=== PATIENT | male | born 1970 | race Caucasian/White ===

== ENCOUNTER 2020-12-02 06:34 | Inpatient (IN) | payer OTHER ==
[~2020-12-02] VITALS: Ht 160 cm; Wt 81.6 kg
[~2020-12-02 06:34] MED LIST: CLARITIN-D (12 H1 EA PO; DITROPAN XL10 MG PO; METOPROLOL SUCC50 MG PO; PROTONIX40 MG PO
[2020-12-02 07:05] LABS: HEMOGLOBIN 17.5 gm/dl (14.0-17.5); RED BLOOD COUNT 5.67 M/UL (4.20-5.50); WHITE BLOOD COUNT 13.4 K/UL (4.5-11.0)
[2020-12-02 07:20] LABS: BUN/CREATININE RATIO 30 (0-10)
[2020-12-02 11:12] LABS: ADENOVIRUS F 40/41 Not Detected (Negative); ASTROVIRUS Not Detected (Negative); CAMPYLOBACTER Not Detected (Negative); CLOSTRIDIUM DIFFICILE TOX A/B Not Detected (Negative); CRYPTOSPORIDIUM Not Detected (Negative); E.COLI 0157 Not Detected (Negative); ENTAMOEBA HISTOLYTICA Not Detected (Negative); ENTEROAGGREGATIVE E.COLI (EAEC Not Detected (Negative); ENTEROPATHOGENIC E.COLI (EPEC) Not Detected (Negative); ENTEROTOXIGENIC E.COLI (ETEC) Not Detected (Negative); GIARDIA LAMBLIA Not Detected (Negative); PLESIOMONAS SHIGELLOIDES Not Detected (Negative); ROTOVIRUS A Not Detected (Negative); SALMONELLA Not Detected (Negative); SAPOVIRUS Not Detected (Negative); SHIG/ENTEROINVAS.ECOLI (EIEC) Not Detected (Negative); SHIGA-LIK TOX.PRO.E.COLI (STEC Not Detected (Negative); VIBRIO Not Detected (Negative); VIBRIO CHOLERAE Not Detected (Negative); YERSINIA ENTEROCOLITICA Not Detected (Negative)
[2020-12-02] MEDS ORDERED: NEXIUM20 MG PO (11:33)
[2020-12-02] MEDS ORDERED: METOPROLOL SUCC50 MG PO (11:37)
[2020-12-02] MEDS ORDERED: MELOXICAM7.5 MG PO (11:37)
[2020-12-02] MEDS ORDERED: LAMISIL TAB 25250 MG PO (11:37)
[2020-12-02] MEDS ORDERED: DAILY VITE1 EACH PO (11:40)
[2020-12-02 16:59] LABS: NOROVIRUS GI/GII DETECTED (Negative)
[2020-12-02] MEDS ORDERED: LEVOTHYROXINE75 MCG PO (20:40)
[2020-12-02] MEDS ORDERED: ASPIRIN EC81 MG PO (20:40)
[2020-12-02] MEDS ORDERED: SINGULAIR10 MG PO (20:43)
[2020-12-02] MEDS ORDERED: ZOCOR20 MG PO (20:44)
[2020-12-03 06:32] LABS: WHITE BLOOD COUNT 13.3 K/UL (4.5-11.0)
[2020-12-03 06:39] LABS: HEMOGLOBIN 15.3 gm/dl (14.0-17.5); RED BLOOD COUNT 4.99 M/UL (4.20-5.50)
[2020-12-03 07:05] LABS: BUN/CREATININE RATIO 23 (0-10)
== END 2020-12-04 19:35 | disposition home or self-care (01) | DRG 872 ==
LOC: ER1 06:34 → CDU 09:43 → MED SURG 4 09:43
PROVIDERS: Family Medicine; Internal Medicine Gastroenterology; Physician Assistant Medical; ADMIT Internal Medicine
PROC: 0DJ08ZZ Inspection of Upper Intestinal Tract, Via Natural or Artificial Opening Endoscopic (ICD-10-PCS; principal; 2020-12-04 10:50)
DX: A41.89 Other specified sepsis (principal); A08.11 Acute gastroenteropathy due to Norwalk agent; K29.60 Other gastritis without bleeding; E03.9 Hypothyroidism, unspecified; E78.5 Hyperlipidemia, unspecified; K44.9 Diaphragmatic hernia without obstruction or gangrene; Z20.822 Contact with and (suspected) exposure to COVID-19; E86.0 Dehydration; E87.6 Hypokalemia; K21.00 Gastro-esophageal reflux disease with esophagitis, without bleeding; I10 Essential (primary) hypertension; Z79.82 Long term (current) use of aspirin; Z90.49 Acquired absence of other specified parts of digestive tract; Z82.49 Family history of ischemic heart disease and other diseases of the circulatory system; Z82.61 Family history of arthritis; Z80.1 Family history of malignant neoplasm of trachea, bronchus and lung; Z79.899 Other long term (current) drug therapy
CPT/HCPCS: 36415; 71045; 80048; 80053; 81001; 83690; 83735; 85025; 85027; 87040; 87507; 96374; 99285; C9113; J2270; J2405; J2704; J3480; J7030; J7040; Q9967; U0002